=== PATIENT | female | born 1980 | race Caucasian/White ===

== ENCOUNTER 2020-10-22 08:25 | Outpatient (CLI) | payer OTHER, SELFPAY ==
--- NOTE | ~2020-10-22 | MM_ITS ---
EXAMINATION: MM screening [facility] BI w lisandro HISTORY: Screening mammogram TECHNIQUE: Craniocaudal and mediolateral oblique 3-D tomosynthesis images were obtained and synthetic 2-D images were generated. CAD analysis was submitted and interpreted. COMPARISON: None, baseline BREAST PARENCHYMAL COMPOSITION: There are scattered areas of fibroglandular density. FINDINGS: There is no evidence of suspicious mass, calcification, or architectural distortion to sugg est malignancy in either breast. IMPRESSION: 1. No mammographic evidence of malignancy. 2. Recommend routine screening mammography in one year. BI-RADS Category 1: Negative Reviewed, dictated and finalized at location A. AULIC SPINNER
== END 2020-10-22 08:26 | disposition home or self-care (01) ==
PROVIDERS: Visit Provider Obstetrics & Gynecology
DX: Z12.31 Encounter for screening mammogram for malignant neoplasm of breast (principal)
CPT/HCPCS: 77063; 77067

== ENCOUNTER → 2021-08-02 08:34 | Outpatient (CLI) | payer OTHER, SELFPAY ==
--- NOTE | ~2021-08-02 | XR_ITS ---
XR lumbar spine 2-3V 08/02/2021 09:13 Indication: Low back pain Procedure: 3 views lumbar spine Comparison: No prior studies for comparison. Findings: No fracture, subluxation or dislocation. Normal lumbar lordosis. Pedicles intact. Sacral fo ramen are symmetric. There is an IUD in the pelvis. No significant disc narrowing. No evidence for sp ondylolisthesis. Impression: 1: No significant abnormality of the lumbar spine. Reviewed, dictated and finalized at location B. Impression: 1: No significant abnormality of the lumbar spine.
== END ==
PROVIDERS: PCP Physician Assistant; Visit Provider Physician Assistant
DX: M54.59 Other low back pain (principal)
CPT/HCPCS: 72100

== ENCOUNTER 2021-10-23 07:30 | Outpatient (CLI) | payer OTHER, SELFPAY ==
--- NOTE | ~2021-10-23 | MM_ITS ---
EXAMINATION: MM screening [facility] BI w lisandro HISTORY: Screening TECHNIQUE: Craniocaudal and mediolateral oblique 3-D tomosynthesis images were obtained and synthetic 2-D images were generated. CAD analysis was submitted and interpreted. COMPARISON: Comparison to multiple prior studies sequentially, with oldest reviewed study dated 04/2021. BREAST PARENCHYMAL COMPOSITION: There are scattered areas of fibroglandular density. FINDINGS: There is no evidence of suspicious mass, calcification, or architectural distortion to sugg est malignancy in either breast. There has been no suspicious interval change. IMPRESSION: 1. No mammographic evidence of malignancy. 2. Recommend routine screening mammography in one year. BI-RADS Category 1: Negative Reviewed, dictated and finalized at location A. ICAL DIETICIAN
== END 2021-10-23 07:31 | disposition home or self-care (01) ==
LOC: ANHIMG 07:32
PROVIDERS: PCP Physician Assistant; Visit Provider Obstetrics & Gynecology
DX: Z12.31 Encounter for screening mammogram for malignant neoplasm of breast (principal)
CPT/HCPCS: 77063; 77067

== ENCOUNTER → 2021-12-30 07:47 | Outpatient (CLI) | payer OTHER, SELFPAY ==
--- NOTE | ~2021-12-30 | XR_ITS ---
EXAMINATION: XR abdomen/kub 1V DATE: 12/30/2021 08:13 INDICATION: Right flank pain. TECHNIQUE: A supine view of the abdomen on 2 radiographs was obtained. COMPARISON: CT abdomen and pelvis 01/19/2016 FINDINGS: There are no dilated loops of bowel. There is a moderate volume of stool in the colon. Ther e is no visible urolithiasis. There is an intrauterine device in expected position. There are phlebol iths in the pelvis. IMPRESSION: 1. No visible urolithiasis. Reviewed, dictated and finalized at location A. IMPRESSION: 1. No visible urolithiasis.
--- NOTE | ~2021-12-30 | XR_ITS ---
EXAMINATION: XR thoracic spine 3V DATE: 12/30/2021 08:13 INDICATION: Right flank pain. TECHNIQUE: 3 views of thoracic spine were obtained. COMPARISON: Chest 2 views 01/21/2016 FINDINGS: Bone alignment is normal. Vertebral body heights are normal. There is mildly decreased disc height at multiple levels in mid thoracic spine and moderately decreased disc height at multiple lev els in lower thoracic spine. There are endplate osteophytes at most levels. IMPRESSION: 1. Moderate thoracic spondylosis. Reviewed, dictated and finalized at location A.
== END ==
PROVIDERS: PCP Physician Assistant; Visit Provider Physician Assistant
DX: R10.9 Unspecified abdominal pain (principal); F41.9 Anxiety disorder, unspecified; M47.894 Other spondylosis, thoracic region
CPT/HCPCS: 72072; 74018

== ENCOUNTER 2022-01-15 08:22 | Emergency (ER) | payer OTHER, SELFPAY ==
--- NOTE | 2022-01-15 08:29 | ED.URI ---
HPI - URI/Sore Throat General Chief Complaint: Upper Respiratory Infection Stated Complaint: Sore Throat, Ear Pain Time Seen by Provider: 01/15/22 08:29 Source: patient, family and RN notes reviewed Mode of arrival: ambulatory Limitations: no limitations History of Present Illness HPI Narrative: 41-year-old female presents to the [facility] with complaints of sore throat and ear pain. Patient reports that her ear pain started on Monday, drainage sore throat on Monday. Has done [id number] products such as Tylenol and ibuprofen. Reports taking Flonase daily for allergies, postnasal drip. Denies fevers, abdominal pain and chest pain. No cough. MD elicited complaint: sore throat Related Data Home Medications Medication Instructions Recorded Confirmed alprazolam 0.25 mg PO DIRECTED PRN 01/15/22 01/15/22 olopatadine 0.6 spray INTRANASAL DAILY 01/15/22 01/15/22 triamcinolone acetonide 0.1 applic TOPICAL DIRECTED 01/15/22 01/15/22 Allergies Allergy/AdvReac Type Severity Reaction Status Date / Time chlorhexidine Allergy Unknown Hives Verified 01/15/22 08:47 codeine AdvReac Unknown Hypotension Verified 01/15/22 09:12 hydrocodone AdvReac Unknown Hypotension Verified 01/15/22 09:12 Review of Systems Review of Systems: All systems reviewed & are unremarkable except as noted in HPI and below Constitutional: Constitutional: Reports no additional constitutional complaints, Denies chills, Denies fever(s) and Denies headache(s) Eyes: Eyes: Reports no additional eye complaints ENT: Reports as per HPI, Denies vertigo, Denies dizziness, Denies headache(s), Denies nasal congestion and Reports sore throat Comments: Bilateral ear pain, pressure Cardiovascular: Cardiovascular: Reports no additional cardiovascular complaints, Denies chest pain, Denies syncope, Denies rapid heart rate and Denies dyspnea Respiratory: Respiratory: Reports no additional respiratory complaints, Denies cough, Denies dyspnea and Denies wheezing Gastrointestinal: Gastrointestinal: Reports no additional gastrointestinal complaints, Denies abdominal pain, Denies diarrhea, Denies nausea and Denies vomiting Musculoskeletal: Musculoskeletal: Reports no additional musculoskeletal complaints, Denies back pain and Denies numbness Integumentary/Breasts: Skin/Breast: Reports system reviewed and no additional complaints, except as docu, Denies erythema and Denies rash Neurologic: Reports system reviewed and no additional complaints, except as documented, Denies vertigo, Denies dizziness, Denies syncope, Denies headache(s), Denies focal weakness and Denies numbness Psychiatric: Psychiatric: Reports no additional psychiatric complaints Allergic/Immunologic: Allergic/Immunologic: Reports no additional allergic/immunologic complaints and Denies wheezing PMFSH Past Medical History Medical History (Updated 01/15/22 @ 08:57 by Joan White APRN) Anxiety Surgical History Surgical History (Updated 01/15/22 @ 08:52 by Joan White APRN) History of placement of ear tubes Social History Social History (Updated 01/15/22 @ 08:52 by Joan White APRN) Gender identity (if verbalized by the patient): Female Comments At the time of my signature, I reviewed and agree with the nursing past medical, surgical, social, and family history. There is no relevant family history pertinent to the patient complaint. Exam Const: General: cooperative, healthy appearing, no acute distress, well developed and alert Nutritional Appearance: well nourished and obese Orientation/consciousness: patient oriented x3 Limitations: no limitations HENMT: Head: normal to inspection Ears: external ears normal, EAC's normal, no periauricular adenopathy and TM abnormal with myringotomy tube present bilateral; not erythematous and with no fluid behind the TM General nose exam: Normal external nose present Mouth: Yes Normal oral and palatal mucosa present Teeth and gingiva: dent
[2022-01-15 08:31] VITALS: BP 136/83; PULSE 76; RESP 16; TEMP 36.2; O2SAT 100
== END 2022-01-15 09:01 | disposition home or self-care (01) ==
PROVIDERS: Emergency Provider Nurse Practitioner; PCP Physician Assistant
DX: J02.0 Streptococcal pharyngitis (principal); L01.00 Impetigo, unspecified; F41.9 Anxiety disorder, unspecified
CPT/HCPCS: 87880; 99213; G0463

== ENCOUNTER 2022-10-03 09:35 | Emergency (ER) | payer OTHER, SELFPAY ==
[2022-10-03 10:03] VITALS: BP 154/85; PULSE 60; RESP 16; TEMP 37.2; O2SAT 99
--- NOTE | 2022-10-03 10:18 | ED.URI ---
HPI - URI/Sore Throat General Chief Complaint: Upper Respiratory Infection Stated Complaint: Sore Throat, Cough, Nausea Source: patient Mode of arrival: ambulatory Limitations: no limitations History of Present Illness HPI Narrative: 42 year-old female presents to [facility] with complaints of sore throat, cough, hoarse voice, nausea, fatigue and sinus pressure for the past 4-5 days. Patient denies sick contacts. Patient denies recent travel. Patient has been taking [id number] ibuprofen and Mucinex with minimal relief. Patient takes Zyrtec daily. Patient denies fever, shortness of breath or wheezing. MD elicited complaint: sore throat, rhinorrhea and nasal congestion Onset (ago): day(s) (4-5) Able to tolerate fluids by mouth: Yes Treatments prior to arrival: none Related Data Home Medications Medication Instructions Recorded Confirmed famotidine 20 mg tablet 20 mg PO DAILY 10/03/22 10/03/22 pantoprazole 40 mg tablet,delayed 40 mg PO QAM 10/03/22 10/03/22 release (Protonix) semaglutide 1 mg/dose (4 mg/3 mL) 1 mg subcut WEEKLY 10/03/22 10/03/22 subcutaneous pen injector (Ozempic) sertraline 100 mg tablet 100 mg PO DAILY 10/03/22 10/03/22 zolpidem 5 mg tablet 5 mg PO HS 10/03/22 10/03/22 Allergies Allergy/AdvReac Type Severity Reaction Status Date / Time chlorhexidine Allergy Unknown Hives Verified 10/03/22 10:21 codeine AdvReac Unknown Hypotension Verified 10/03/22 10:21 hydrocodone AdvReac Unknown Hypotension Verified 10/03/22 10:21 Review of Systems Constitutional: Constitutional: Denies chills, Denies fatigue and Denies fever(s) ENT: Denies vertigo, Denies dizziness, Reports nasal congestion and Reports sore throat Cardiovascular: Cardiovascular: Denies chest pain Respiratory: Respiratory: Reports chest congestion, Reports cough, Denies dyspnea and Denies wheezing Gastrointestinal: Gastrointestinal: Denies diarrhea, Denies nausea and Denies vomiting Integumentary/Breasts: Skin/Breast: Denies rash Allergic/Immunologic: Allergic/Immunologic: Denies lip swelling, Denies throat swelling, Denies tongue swelling and Denies wheezing PMFSH Past Medical History Medical History Anxiety Surgical History Surgical History History of placement of ear tubes Social History Social History Gender identity (if verbalized by the patient): Female Comments At time of signature, I agree with nursing past medical, surgical, social and family history. There is no relevant family history pertinent to the presenting complaint. Exam Const: General: healthy appearing and no acute distress Nutritional Appearance: well nourished Orientation/consciousness: patient oriented x3 Limitations: no limitations HENMT: Head: normal to inspection Ears: external ears normal and TM's normal bilaterally Face/Nose/Sinus: Nasal discharge present clear bilateral Face and sinus: sinus tenderness frontal Mouth: Yes moist mucous membranes Throat: posterior oropharynx normal and uvula midline Other: moderate nasal congestion noted Eyes: Conjunctivae: conjunctivae normal Neck: Neck: normal visual inspection Resp: Effort & Inspection: normal respiratory effort and not labored Auscultation: clear to auscultation bilaterally, no crackles, no rales and no rhonchi Cardio: Rate: regular rate Rhythm: regular rhythm Heart sounds: no murmurs Skin: General skin exam: normal color Rashes: no rashes Wounds: no wounds Neuro: General: patient oriented x3 Speech: normal speech Gait exam (Neuro): Normal gait present Psych: Affect: normal affect Attitude: cooperative Course Course Level of Care: Express Care Visit Vital Signs Vital signs: Vital Signs Temperature 37.2 C 10/03/22 10:03 Pulse Rate 60 10/03/22 10:03 Respiratory Rate 16 10/03/22 10
== END 2022-10-03 10:53 | disposition home or self-care (01) ==
PROVIDERS: Emergency Provider Nurse Practitioner Family; PCP Physician Assistant
DX: J32.9 Chronic sinusitis, unspecified (principal); F41.9 Anxiety disorder, unspecified
CPT/HCPCS: 99213; G0463

== ENCOUNTER 2022-12-15 07:06 | Outpatient (CLI) | payer OTHER, SELFPAY ==
--- NOTE | ~2022-12-15 | MM_ITS ---
EXAMINATION: MM screening [facility] BI w lisandro HISTORY: Screening mammogram TECHNIQUE: Craniocaudal and mediolateral oblique 3-D tomosynthesis images were obtained and synthetic 2-D images were generated. CAD analysis was submitted and interpreted. COMPARISON: 10/23/2021, 10/22/2020 bilateral screening mammogram examinations BREAST PARENCHYMAL COMPOSITION: There are scattered areas of fibroglandular density. FINDINGS: There is no evidence of suspicious mass, calcification, or architectural distortion to sugg est malignancy in either breast. There has been no suspicious interval change. IMPRESSION: 1. No mammographic evidence of malignancy. 2. Recommend routine screening mammography in one year. BI-RADS Category 1: Negative Reviewed, dictated and finalized at location A. ENTER AND JOINER
== END 2022-12-15 07:07 | disposition home or self-care (01) ==
PROVIDERS: PCP Physician Assistant; Visit Provider Obstetrics & Gynecology
DX: Z12.31 Encounter for screening mammogram for malignant neoplasm of breast (principal)
CPT/HCPCS: 77063; 77067

== ENCOUNTER 2024-09-20 18:56 | Emergency (ER) | payer OTHER, SELFPAY ==
[2024-09-20 19:17] VITALS: BP 140/77; PULSE 111; RESP 19; TEMP 36.7; O2SAT 100
--- NOTE | 2024-09-20 19:56 | ED_ITS ---
HPI - URI/Sore Throat General Chief Complaint: Upper Respiratory Infection Stated Complaint: fever,sorethroat Time Seen by Provider: 09/20/24 19:57 Source: patient, RN notes reviewed and old records reviewed Mode of arrival: ambulatory Limitations: no limitations History of Present Illness HPI Narrative: Patient presents with complaints of sore throat that has been present for 2-3 days. She has been taking Tylenol and ibuprofen with moderate results. She reports fever intermittently. Is still able to eat and drink as normal, although she does say it hurts to swallow. She denies any injury or trauma. She voices no other concerns or complaints at this time. Related Data Home Medications Medication Instructions Recorded Confirmed famotidine 20 mg tablet 20 mg PO DAILY 10/03/22 09/20/24 pantoprazole 40 mg tablet,delayed 40 mg PO QAM 10/03/22 09/20/24 release (Protonix) semaglutide 1 mg/dose (4 mg/3 mL) 1 mg subcut WEEKLY 10/03/22 09/20/24 subcutaneous pen injector (Ozempic) sertraline 100 mg tablet 100 mg PO DAILY 10/03/22 09/20/24 zolpidem 5 mg tablet 5 mg PO HS 10/03/22 09/20/24 tretinoin 0.05 % topical cream 1 applic topical DIRECTED 09/20/24 09/20/24 Allergies Allergy/AdvReac Type Severity Reaction Status Date / Time chlorhexidine Allergy Unknown Hives Verified 09/20/24 19:01 codeine AdvReac Unknown Hypotension Verified 09/20/24 19:01 hydrocodone AdvReac Unknown Hypotension Verified 09/20/24 19:01 Review of Systems Review of Systems: All systems reviewed & are unremarkable except as noted in HPI and below Constitutional: Constitutional: Reports no additional constitutional complaints and Reports fever(s) ENT: Reports system reviewed and no additional complaints, except as documented and Reports sore throat Cardiovascular: Cardiovascular: Reports no additional cardiovascular complaints Respiratory: Respiratory: Reports no additional respiratory complaints Gastrointestinal: Gastrointestinal: Reports no additional gastrointestinal c omplaints PMFSH Past Medical History Medical History Anxiety Surgical History Surgical History History of placement of ear tubes Social History Social History Gender identity (if verbalized by the patient): Female Exam Const: General: cooperative, no acute distress, alert and awake Orientation/consciousness: oriented to person, oriented to place and oriented to time HENMT: Head: normal to inspection Ears: TM's normal bilaterally Mouth: Yes moist mucous membranes Throat: abnormal tonsil bilateral erythema, exudates and hypertrophy 2+ Resp: Effort & Inspection: normal respiratory effort and able to speak in complete sentences Auscultation: clear to auscultation bilaterally, no crackles, no rales, no rhonchi and no wheezes Cardio: Palpation: normal PMI Rate: regular rate Rhythm: regular rhythm Heart sounds: S1 normal heart sound present and S2 normal heart sound present Neuro: General: oriented to person, oriented to place and oriented to time Cranial nerves: Yes CN's II-XII intact bilaterally Psych: Appearance: grossly normal Thought process: Normal thought process present Insight: Good insight present (Psych) Judgement: Good judgement present (Psych) Course Course Level of Care: Express Care Visit Vital Signs Vital signs: Vital Signs Temperature 98.1 F 09/20/24 19:17 Pulse Rate 111 H 09/20/24 19:17 Respiratory Rate 19 09/20/24 19:17 Blood Pressure 140/77 09/20/24 19:17 Pulse Oximetry 100 09/20/24 19:17 Oxygen Delivery Room Air 09/20/24 19:17 Temperature 98.1 F 09/20/24 19:17 Pulse Rate 111 H 09/20/24 19:17 Respiratory Rate 19 09/20/24 19:17 Blood Pressure 140/77 09/20/24 19:17 Pulse Oximetry 100 09/20/24 19:17 Oxygen Delivery Room Air 09/20/24 19:17 MDM - URI/Sore Throat MDM Narrative Medical decision making narrative: Positive strep, patient nontoxic appearing, stable for discharge home on p.o. antibiotic therapy. Discharge instructions reviewed with patient, as well as provided in writing per nursing staff. The instructions also include specific and strict return/GO TO THE ER as well as f/u information. All questions have been answered, and the patient deny any further questions with discharge and discharge plan. Some parts of this dictation were generated by voice recognition software and may contain typographical and/or grammatical inaccuracies. Differential Diagnosis Differential diagnosis: Likely upper respiratory infection, otitis media, viral infection, influenza and pharyngitis Medical Records Attestation: I reviewed the patient's medical records. Lab Data Attestation: I reviewed the patient's lab results. Labs: Lab Results 09/20/24 Range/Units 20:05 POC Grp A Strep Screen Positive (Negative) Discharge Plan Discharge Clinical Impression: Acute bacterial tonsillitis Patient Disposition: Home, Self-Care Condition: Stable Instructions: Antibiotic Form, Tonsillitis (ED) Additional Instructions: Take medications as prescribed. Follow-up with primary care provider. Emergency department for any new or worsening symptoms. Patient Language: Armenian Prescriptions: New penicillin V potassium 500 mg tablet 500 mg PO Q12H 10 Days Qty: 20 0RF No Action tretinoin 0.05 % cream 1 applic TOPICAL DIRECTED famotidine 20 mg tablet 20 mg PO DAILY sertraline 100 mg Tablet 100 mg PO DAILY pantoprazole [Protonix] 40 mg Tablet,Delayed Release (Dr/Ec) 40 mg PO QAM zolpidem 5 mg Tablet 5 mg PO HS Ozempic 1 mg/dose (4 mg/3 mL) Pen Injector 1 mg SUBCUT WEEKLY Follow-up/Referrals: Kadie,ROGER [place] [Primary Care Provider] - 2 Weeks Stand Alone Forms: Work/School Release IP Time of Disposition: 20:06
[2024-09-20 20:11] LABS: EDSTREPNEGPOS1 Positive (Negative)
== END 2024-09-20 20:10 | disposition home or self-care (01) ==
PROVIDERS: Emergency Provider Nurse Practitioner Family; PCP Physician Assistant
DX: J01.90 Acute sinusitis, unspecified (principal); F41.9 Anxiety disorder, unspecified
CPT/HCPCS: 87880; 99213; G0463